=== PATIENT | female | born 1990 | race Hispanic/Latino ===

== ENCOUNTER 2016-12-30 11:48 | Emergency (ER) | payer OTHER ==
[2016-12-30 12:04] VITALS: TEMP 98.4
--- NOTE | 2016-12-30 12:39 | C.PDOC ---
History Of Present Illness 26 y/o female, who presents to the ED complaining of two episodes of visual disturbances in the past few days. Patient describes the visual disturbances as an "after affect when seeing an optical illusion". She states it is in black and white and begins as a small circular image that gets bigger until it leaves her sight. She reports these episodes last for about five minutes. Patient notes that she has had these visual changes usually after an hour of strenuous activity such as lifting weights in the gym. She states it also happened 3 months ago. She does wear prescribed contacts. Patient denies any headache, discharge in eyes, ringing in ears, or other complaints. Patient denies any recent head trauma. Time Seen by Provider: 12/30/16 12:21 Chief Complaint (Nursing): Eye Problem History Per: Patient History/Exam Limitations: no limitations Onset/Duration Of Symptoms: Days (last few days), Intermittent Episodes Current Symptoms Are (Timing): Still Present Injury To Eye?: No Quality: Other (visual changes) Wears Contact Lens?: Yes Associated Symptoms: denies: Pain, Itching, Discharge From Eye Past Medical History Reviewed: Historical Data, Nursing Documentation, Vital Signs Vital Signs: Last Vital Signs Temp 98.4 F 12/30/16 11:59 Pulse 78 12/30/16 14:25 Resp 16 12/30/16 14:25 BP 135/75 12/30/16 14:25 Pulse Ox 98 12/30/16 14:25 Family History: States: Other Other Family History: brain tumor - Social History Hx Alcohol Use: Yes Hx Substance Use: No - Immunization History Hx Tetanus Toxoid Vaccination: Yes Hx Influenza Vaccination: Yes Hx Pneumococcal Vaccination: No Review Of Systems Constitutional: Negative for: Fever Eyes: Positive for: Vision Change (described as an after affect when seeing optical illusion. Episode lasts 5 minutes.). Negative for: Pain, Redness Cardiovascular: Negative for: Chest Pain Respiratory: Negative for: Shortness of Breath Gastrointestinal: Negative for: Abdominal Pain Neurological: Negative for: Headache, Dizziness Physical Exam - Physical Exam Appears: Well, Non-toxic, No Acute Distress Skin: Warm, Dry, No Diaphoretic, No Pale Head: Atraumatic, Normacephalic Eye(s): bilateral: Normal Inspection, PERRL, EOMI, Other (normal peripheral vision. no double vision) Ear(s): Bilateral: Normal Nose: Normal Oral Mucosa: Moist Neck: Normal ROM Chest: Symmetrical Cardiovascular: Rhythm Regular, No Murmur Respiratory: Normal Breath Sounds, No Wheezing Extremity: Bilateral: Atraumatic, Normal Color And Temperature, Normal ROM Neurological/Psych: Oriented x3, Normal Speech, Normal Cranial Nerves, No Cerebellar Signs, Normal Motor, Normal Sensation Gait: Steady ED Course And Treatment O2 Sat by Pulse Oximetry: 100 (room air) Pulse Ox Interpretation: Normal Medical Decision Making Medical Decision Making: Impression: 26 y/o with visual changes that last 5 minutes. Reports having Fam Hx of brain tumors. Patient noted to be anxious, but with normal physical and neuro exam. Normal vision. Plan: -- CT head -- Reassess and disposition Progress Notes: CT reviewed IMPRESSION: No acute intracranial abnormality. If focal neurologic deficit or vision problems persists, consider further evaluation with MRI. Patient remained well in no distress with no episodes of vision complaints during ED evaluation. Explained CT results and also explain CT is limiting and will need further evaluation with MRI. Patient verbalized understanding and will follow up outpatient. Disposition Counseled Patient/Family Regarding: Studies Performed, Diagnosis, Need For Followup - Disposition Referrals: Mina Rivas MD [Staff Provider] - Disposition: HOME/ ROUTINE Disposition Time: 14:19 Condition: STABLE Additional Instructions: Please follow up with optho and your primary medical doctor for further evaluation of your vision problem Return to the emergency department at any time if symptoms persist or worsen. Instructions: Blurred Vision (ED) Forms: [facility] (Tuvaluan) - POA Present On Arrival: None, Blood Incompatibility - Clinical Impression Clinical Impression: Vision problems - Scribe Statement The provider has reviewed the documentation as recorded by the Scribe 12/30/2016 Scribe Attestation: Shabnam Platt MD Scribe Attestation: All medical record entries made by the Scribe were at my direction and personally dictated by me. I have reviewed the chart and agree that the record accurately reflects my personal performance of the history, physical exam, medical decision making, and the department course for this patient. I have also personally directed, reviewed, and agree with the discharge instructions and disposition.
--- NOTE | 2016-12-30 14:09 | CT ---
PROCEDURE: CT HEAD WITHOUT CONTRAST. HISTORY: c.o vision problems for months COMPARISON: None available. TECHNIQUE: Axial computed tomography images were obtained through the head/brain without intravenous contrast. Radiation dose: Total exam DLP = 900 mGy-cm. This CT exam was performed using one or more of the following dose reduction techniques: Automated exposure control, adjustment of the mA and/or kV according to patient size, and/or use of iterative reconstruction technique. FINDINGS: HEMORRHAGE: No intracranial hemorrhage. BRAIN: No mass effect or edema. No atrophy or chronic microvascular ischemic changes. VENTRICLES: Unremarkable. No hydrocephalus. CALVARIUM: Unremarkable. PARANASAL SINUSES: Unremarkable as visualized. No significant inflammatory changes. MASTOID AIR CELLS: Unremarkable as visualized. No inflammatory changes. OTHER FINDINGS: None. IMPRESSION: No acute intracranial abnormality. If focal neurologic deficit or vision problems persists, consider further evaluation with MRI.
[2016-12-30 14:26] VITALS: BP 135/75; PULSE 78; RESP 16
[2016-12-30 21:22] VITALS: O2SAT 100
== END 2016-12-30 14:25 | disposition home or self-care (01) ==
LOC: C.ER 11:48
DX: H53.9 Unspecified visual disturbance (principal)